=== PATIENT | female | born 1965 | race Caucasian/White ===

== ENCOUNTER 2019-08-23 04:29 | Emergency (ER) | payer OTHER ==
[~2019-08-23] VITALS: Ht 170.2 cm; Wt 79.4 kg
[2019-08-23 04:32] VITALS: BP 129/75
--- NOTE | 2019-08-23 04:32 | NUR ---
PT AMBULATED TO BED #7
--- NOTE | 2019-08-23 04:35 | NUR ---
54 YO FEMALE BIB FOR ABD PAIN X 1 HOUR. PT STATES RUQ PAIN 10/10 SHARP IN NATURE. ABD SOFT NON DISTENDED. TENDER TO TOUCH. ACTIVE BS X4 QUADRANTS. LBM 08/22/19. DENIES N/V/D @ THIS TIME. DENIES FEVER CHILLS HX: ASTHMA RX: DENIES AX: MORPHINE
[2019-08-23] MEDS ORDERED: KETOROLAC 30 MG/ML VIAL IM ONE (04:50)
--- NOTE | 2019-08-23 05:21 | NUR ---
DR. BARNHART BEDSIDE EVALUATING PT
[2019-08-23] MEDS ORDERED: NACL 0.9% 1,000 ML IV ONE (05:25)
[2019-08-23] MEDS ORDERED: fentaNYL 0.05 MG/ML VIAL NS ONE (05:25)
[2019-08-23] MEDS ORDERED: fentaNYL 0.05 MG/ML VIAL IVP ONE (05:25)
[2019-08-23 06:06] LABS: BASOPHILS % (AUTO) 0.2 % (0.0-2.0); EOSINOPHILS # (AUTO) 0.1 K/uL (0-0.4); EOSINOPHILS % (AUTO) 1.6 % (0.0-4.0); HEMATOCRIT 39.4 % (36-48); LYMPHOCYTES # (AUTO) 1.9 K/uL (2.5-16.5); LYMPHOCYTES % (AUTO) 22.9 % (20.5-51.1); MEAN CORPUSCULAR HEMOGLOBIN 30 pg (27-31); MEAN CORPUSCULAR HGB CONC 33 g/dL (33-37); MEAN CORPUSCULAR VOLUME 91.8 fL (80-94); MONOCYTES # (AUTO) 0.4 K/uL (0.8-1.0); MONOCYTES % (AUTO) 5.3 % (1.7-9.3); NEUTROPHILS # (AUTO) 5.9 K/uL (1.8-7.7); PLATELET COUNT (AUTO) 183 K/uL (140-450); RED BLOOD CELL COUNT(AUTO) 4.29 MIL/uL (4.20-5.40); RED CELL DISTRIBUTION WIDTH 13.9 % (11.6-13.7); WHITE BLOOD COUNT (AUTO) 8.5 K/uL (4.8-10.8)
[2019-08-23 06:14] LABS: CARBON DIOXIDE 24.8 mmol/L (21-32); CREATININE 0.8 mg/dL (0.6-1.3); POTASSIUM 3.8 mmol/L (3.5-5.1)
[2019-08-23 06:21] LABS: ALBUMIN 3.6 g/dL (3.4-5.0); TOTAL BILIRUBIN 0.7 mg/dL (0.0-1.0)
--- NOTE | 2019-08-23 07:19 | NUR ---
REPORT GIVEN TO DAY SHIFT RN FOR CONTINUITY OF CARE
--- NOTE | 2019-08-23 07:20 | NUR ---
RECEIVED BEDSIDE REPORT FROM JENNIFER WALL FOR CONTINUATION OF CARE
[2019-08-23 07:35] VITALS: BP 140/72
--- NOTE | 2019-08-23 07:37 | NUR ---
Patient discharged with v/s stable. Written and verbal after care instructions given and explained. Patient alert, oriented and verbalized understanding of instructions. Ambulatory with steady gait. All questions addressed prior to discharge. ID band removed. Patient advised to follow up with PMD. Rx of TYLENOL & MYLANTA given. Patient educated on indication of medication including possible reaction and side effects. Opportunity to ask questions provided and answered.
== END 2019-08-23 07:37 | disposition home or self-care (01) ==
LOC: MED 04:29
DX: R10.10 Upper abdominal pain, unspecified (principal)
CPT/HCPCS: 36415; 76705; 80053; 81025; 83690; 85025; 96372; 96374; 99284; J1885; J3010; Q0092